=== PATIENT | female | born 1935 | race Caucasian/White ===

== ENCOUNTER → 2017-08-23 | Outpatient (CLI) | payer MEDICARE, BC ==
[~2017-08-23] MED LIST: ACCUPRIL40 MG PO; FOSAMAX 70 MG T70 M1 PO; NEXIUM 40 MG CA40 M1 PO; NORVASC10 MG PO; PERCOCET 5-3251 EACH; VALIUM10 MG PO
== END ==
LOC: M.MRI 16:07
DX: S22.059A Unspecified fracture of T5-T6 vertebra, initial encounter for closed fracture (principal); M41.34 Thoracogenic scoliosis, thoracic region; M51.34 Other intervertebral disc degeneration, thoracic region; X58.XXXA Exposure to other specified factors, initial encounter; Y93.89 Activity, other specified; Y92.89 Other specified places as the place of occurrence of the external cause; Y99.8 Other external cause status

== ENCOUNTER → 2017-10-30 | Outpatient (CLI) | payer MEDICARE, BC ==
--- NOTE | 2017-11-03 15:35 | 24HR ---
[place] [address] [employer] MONITOR REPORT Name: CROUCHSURYABRITTANEY CRAIG Room: [facility]#: [id number] Admission: 10/30/17 Attend Phys: Destin Joshi, Discharge: Date of : 39 Date of Service: 11/03/17 1315 Report #: [id number] THIS REPORT FOR: //name// [facility] Test Date: 2017-11-03 Test Time: 13:15:11 Pat Name: SURYA CROUCH Department: Room: Gender: F Charge Entry Clerk: : 1935 Requested By: Destin Joshi Order Number: [id number] Reading MD: Destin Mcclelland Interpretive Statements 1. sinus rhythm with sinus bradycardia and tachycardia 2. frequent pvc's 3. rare pac 4. symptoms did not correlate with an arrhythmia Electronically Signed On 11-03-2017 15:35:08 CDT by Destin Mcclelland [email or web address] <ELECTRONICALLY SIGNED> By: Destin Mcclelland MD, [facility] 11/03/17 1535 1315 1315 Destin Mcclelland MD, FACC /EPI
== END ==
LOC: M.RAD 13:30
DX: M85.89 Other specified disorders of bone density and structure, multiple sites (principal); I10 Essential (primary) hypertension; M54.6 Pain in thoracic spine; G89.29 Other chronic pain; J44.9 Chronic obstructive pulmonary disease, unspecified; Z78.0 Asymptomatic menopausal state

== ENCOUNTER → 2018-04-02 | Outpatient (CLI) | payer MEDICARE, BC ==
[2018-04-02 13:08] LABS: CREATININE 1.2 mg/dL (0.6-1.3)
== END ==
LOC: M.CT 12:38
PROVIDERS: Internal Medicine
DX: K57.30 Diverticulosis of large intestine without perforation or abscess without bleeding (principal); I70.0 Atherosclerosis of aorta; R16.0 Hepatomegaly, not elsewhere classified; R06.02 Shortness of breath; Z90.49 Acquired absence of other specified parts of digestive tract; Z90.710 Acquired absence of both cervix and uterus

== ENCOUNTER → 2018-04-25 | Outpatient (CLI) | payer MEDICARE, BC | LOC: M.CT 08:56 | DX: K76.0 Fatty (change of) liver, not elsewhere classified (principal); M41.34 Thoracogenic scoliosis, thoracic region; K21.9 Gastro-esophageal reflux disease without esophagitis; I10 Essential (primary) hypertension; M54.6 Pain in thoracic spine; G89.29 Other chronic pain; F41.1 Generalized anxiety disorder ==

== ENCOUNTER → 2018-05-29 | Outpatient (CLI) | payer MEDICARE, BC | LOC: M.RAD 10:30 | DX: M84.68XA Pathological fracture in other disease, other site, initial encounter for fracture (principal); M47.815 Spondylosis without myelopathy or radiculopathy, thoracolumbar region; M47.812 Spondylosis without myelopathy or radiculopathy, cervical region; M48.02 Spinal stenosis, cervical region; M85.88 Other specified disorders of bone density and structure, other site; M41.84 Other forms of scoliosis, thoracic region; M19.042 Primary osteoarthritis, left hand; M19.041 Primary osteoarthritis, right hand; Z96.651 Presence of right artificial knee joint ==